=== PATIENT | female | born 1990 | race Two or more races ===

== ENCOUNTER 2021-10-23 21:47 | Emergency (ER) | payer OTHER ==
[~2021-10-23] VITALS: Ht 144.8 cm; Wt 40.8 kg
== END 2021-10-24 01:08 | disposition home or self-care (01) ==
LOC: ER 21:47
DX: R10.13 Epigastric pain (principal)

== ENCOUNTER 2021-10-26 16:41 | Emergency (ER) | payer OTHER ==
[~2021-10-26] VITALS: Ht 144.8 cm; Wt 41.7 kg
[2021-10-26] MEDS ORDERED: KETO10TA2 PO (16:55)
[2021-10-26] MEDS ORDERED: PEPCID AC20 MG PO (20:16)
[2021-10-26] MEDS ORDERED: ONDANSETRON ODT8 MG PO (20:16)
[2021-10-26] MEDS ORDERED: CARAFATE1 GM PO (20:16)
== END 2021-10-26 20:29 | disposition home or self-care (01) ==
LOC: ER 16:41
DX: O21.0 Mild hyperemesis gravidarum (principal); Z34.90 Encounter for supervision of normal pregnancy, unspecified, unspecified trimester; K29.70 Gastritis, unspecified, without bleeding; R10.84 Generalized abdominal pain

== ENCOUNTER 2022-03-02 04:07 | Emergency (ER) | payer OTHER ==
[~2022-03-02] VITALS: Ht 149.9 cm; Wt 48.5 kg
[~2022-03-02 04:07] MED LIST: CARAFATE1 GM PO; KETO10TA2 PO; ONDANSETRON ODT8 MG PO; PEPCID AC20 MG PO
[2022-03-02] MEDS ORDERED: ZOFRAN8 MG PO (08:47)
[2022-03-02] MEDS ORDERED: PEPCID40 MG PO (08:47)
== END 2022-03-02 08:56 ==
LOC: ER 04:07
DX: U07.1 COVID-19 (principal); R50.9 Fever, unspecified

== ENCOUNTER 2023-04-23 18:52 | Emergency (ER) | payer OTHER ==
[~2023-04-23] VITALS: Ht 157.5 cm; Wt 52.2 kg
[~2023-04-23 18:52] MED LIST changes: +PEPCID40 MG PO; +ZOFRAN8 MG PO
[2023-04-23] MEDS ORDERED: 0.9 % SODIUM CHLORIDE 1,000 ML IV ONE (20:45)
[2023-04-23] MEDS ORDERED: ONDANSETRON HCL 2 MG/ML VIAL IV ONE (20:45)
[2023-04-23] MEDS ORDERED: FAMOTIDINE/PF 20 MG/2 ML VIAL IV ONE (20:45)
[2023-04-23 21:20] LABS: HEMATOCRIT 41.9 % (36.0-45.00); MEAN CELL VOLUME 84.1 fL (80.00-100.00); MEAN CORPUSCULAR HEMOGLOBIN 28.1 pg (27.00-32.0); MEAN CORPUSCULAR HGB CONC 33.5 g/dl (32.0-36.0); PLATELET COUNT 210 K/uL (150-450); RED BLOOD COUNT 4.98 M/uL (4.00-6.00); RED CELL DISTRIBUTION WIDTH 14.1 % (11.5-14.5)
[2023-04-23 21:20] LABS: URINE APPEARANCE Cloudy; URINE BACTERIA 7392.1 uL (0.0-1933); URINE BILIRRUBIN Negative (NEGATIVE); URINE BLOOD Negative; URINE COLOR Yellow; URINE EPITHELIAL CELLS 47.3 uL (0.0-38.8); URINE GLUCOSE Negative (NEGATIVE); URINE LEUKOCYTE Negative; URINE NITRATE Negative; URINE PROTEIN 30 (NEGATIVE); URINE WBC 101.5 uL (0.0-23.2)
[2023-04-23 21:35] LABS: URINE MUCUS HEAVY
[2023-04-23 21:50] LABS: ALBUMIN 4.4 gm/dL (3.4-5.0); BILIRUBIN TOTAL 1.1 mg/dL (0.3-1.2); BILIRUBIN,CONJUGATED 0.23 mg/dL (0.0-0.2); BILIRUBIN,UNCONJUGATED 0.87 mg/dL (0.0-0.6); CALCIUM 8.9 mg/dL (8.5-10.1); CREATININE SERUM 0.7 mg/dL (0.55-1.02); GFR 97.6; GLOBULINA 3.4 G/DL (2.4-3.5); POTASSIUM 3.18 mEq/L (3.5-5.1); TOTAL PROTEIN 7.8 gm/dL (6.4-8.2)
[2023-04-23] MEDS ORDERED: MEPERIDINE HCL 25 MG/ML AMPUL IM STA (22:23)
[2023-04-23] MEDS ORDERED: PROMETHAZINE HCL 25 MG/ML AMPUL IM ONE (22:30)
[2023-04-23] MEDS ORDERED: ONDANSETRON ODT4 MG SL (23:58)
[2023-04-23] MEDS ORDERED: PRILOSEC OTC20 MG PO (23:58)
[2023-04-23] MEDS ORDERED: CIPRO500 MG PO (23:58)
[2023-04-23] MEDS ORDERED: INTESTINEX680 M1 PO (23:58)
== END 2023-04-24 00:19 | disposition home or self-care (01) ==
LOC: ER 18:53
PROVIDERS: Nurse Practitioner Family
DX: K52.9 Noninfective gastroenteritis and colitis, unspecified (principal); R10.9 Unspecified abdominal pain; R11.10 Vomiting, unspecified
CPT/HCPCS: 36415; 74177; 76700; Q9965

== ENCOUNTER 2024-04-09 05:29 | Inpatient (IN) | payer OTHER ==
[~2024-04-09] VITALS: Ht 144.8 cm; Wt 52.2 kg
[~2024-04-09 05:29] MED LIST changes: +BONJESTA ER 201 EACH PO; +CIPRO500 MG PO; +FOLIC PO; +INTESTINEX680 M1 PO; +ONDANSETRON ODT4 MG SL; +OSEL75CA PO; +PRILOSEC OTC20 MG PO; +TUSNEL LIQUID178 ML PO; +UNISOM SLEEP AI25 MG
--- NOTE | 2024-04-09 05:49 | NUR ---
PACIENTE FEMENINA ALERTA Y ORIENTADA X3, REFIERE DOLOR ABDOMINAL DRE Y ROSEMARIE Y DIARREAS CON YESI.
[2024-04-09] MEDS ORDERED: PROMETHAZINE HCL 50 MG/ML AMPUL IM STA (06:24)
[2024-04-09] MEDS ORDERED: MEPERIDINE HCL/PF 50 MG/ML VIAL IM STA (06:24)
[2024-04-09] MEDS ORDERED: 0.9 % SODIUM CHLORIDE 1,000 ML IV ONE (06:30)
[2024-04-09] MEDS ORDERED: PROMETHAZINE HCL 50 MG/ML AMPUL IM ONE (07:26)
--- NOTE | 2024-04-09 08:03 | NUR ---
EVALUA A PACIENTE Y SHAWN MATTHEWS EDUCA A PACIENTE SOBRE ORDENES MEDICAS. COLECTA MUESTRAS DE LAB. ENTREGA ENVASE PARA ORINA Y ESCRETA. ADMINISTRA MEDICAMENTOS KG ORDEN MEDICA Y ADMINISTRA FLUIDOS.
[2024-04-09 08:46] LABS: HEMATOCRIT 40.7 % (36.0-45.00); HEMOGLOBIN 14.3 g/dL (12.0-15.00); MEAN CELL VOLUME 84.9 fL (80.00-100.00); MEAN CORPUSCULAR HEMOGLOBIN 29.9 pg (27.00-32.0); MEAN CORPUSCULAR HGB CONC 35.2 g/dl (32.0-36.0); PLATELET COUNT 238 K/uL (150-450); RED BLOOD COUNT 4.79 M/uL (4.00-6.00); RED CELL DISTRIBUTION WIDTH 13.5 % (11.5-14.5)
[2024-04-09 08:51] LABS: URINE APPEARANCE Cloudy; URINE BILIRRUBIN Negative (NEGATIVE); URINE BLOOD Negative; URINE COLOR Dark Yellow; URINE GLUCOSE Negative (NEGATIVE); URINE KETONE 15 (NEGATIVE); URINE LEUKOCYTE Negative; URINE NITRATE Negative; URINE PROTEIN 30 (NEGATIVE)
[2024-04-09 08:54] LABS: URINE BACTERIA 4193.3 uL (0.0-1933); URINE CAST 1.76 uL (0.0-1.40); URINE EPITHELIAL CELLS 58.7 uL (0.0-38.8); URINE RBC 19.7 uL (0.0-20.8); URINE WBC 20.2 uL (0.0-23.2)
[2024-04-09 09:06] LABS: ALBUMIN 4.4 gm/dL (3.4-5.0); ALKALINE PHOSPHATASE 51 U/L (50-136); ALT/SGPT 17 U/L (12-78); AMYLASE 122 U/L (25-115); ANION GAP 12 (10.0-20.0); AST/SGOT 16 U/L (15-37); BLOOD UREA NITROGEN 9 mg/dL (7-18); BUN CREA RATIO 15 (7.0-25.0); CALCIUM 9.9 mg/dL (8.5-10.1); CARBON DIOXIDE 24 mEq/L (21-32); CHLORIDE 108 mmol/L (98-107); GFR 115.85; GLOBULINA 3.9 G/DL (2.4-3.5); GLUCOSE FASTING 116 mg/dL (65-100); LIPASE 24 U/L (13-75); OSMOLALITY SERUM 279 MOSM/KG (275-295); SODIUM 140 mmol/L (136-145); TOTAL PROTEIN 8.3 gm/dL (6.4-8.2)
[2024-04-09 09:10] LABS: INR 1.06; PROTHROMBIN TIME 11.5 SECONDS (9.0-11.5)
[2024-04-09 09:14] LABS: HCG QUANTITATIVE < 1 mUI/mL (1-3)
[2024-04-09 09:17] LABS: ob POSITIVE (NEGATIVE)
[2024-04-09 09:18] LABS: FECAL LEUKOCYTES POSITIVE (NEGATIVE)
[2024-04-09] MEDS ORDERED: DIATRIZOATE MEGLUMINE, SODIUM 30 ML BOTTLE ONE (09:37)
[2024-04-09 09:46] LABS: URINE CRYSTALS FEW /HPF; URINE MUCUS HEAVY
[2024-04-09] MEDS ORDERED: METRONIDAZOLE/SODIUM CHLORIDE 500 MG/100 ML PIGGYBACK IV ONE ×2 (14:30→14:44)
[2024-04-09] MEDS ORDERED: CIPROFLOXACIN IN 5 % DEXTROSE 400 MG/200 ML PIGGYBAG IV ONE ×2 (14:30→14:44)
[2024-04-09] MEDS ORDERED: MEPERIDINE HCL/PF 50 MG/ML VIAL IM ONE (16:45)
[2024-04-09] MEDS ORDERED: FAMOTIDINE/PF 20 MG in 0.9 % SODIUM CHLORIDE 8 ML IV PUSH SCH (18:10)
[2024-04-09] MEDS ORDERED: HYOSCYAMINE SULFATE 0.125 MG TAB.SUBL SL ONE (18:15)
[2024-04-09] MEDS ORDERED: ONDANSETRON HCL 4 MG in 0.9 % SODIUM CHLORIDE 50 ML IV PRN (18:15)
[2024-04-09] MEDS ORDERED: ACETAMINOPHEN 500 MG GEL..CAP PO PRN (18:15)
[2024-04-09] MEDS ORDERED: MORPHINE SULFATE 2 MG/ML CARTRIDGE IV PRN (18:15)
[2024-04-09] MEDS ORDERED: 0.9 % SODIUM CHLORIDE 1,000 ML IV SCH (18:15)
[2024-04-09] MEDS ORDERED: HYOSCYAMINE SULFATE 0.125 MG TAB.SUBL ONE (19:33)
[2024-04-09] MEDS ORDERED: FAMOTIDINE/PF 20 MG/2 ML VIAL ONE (19:34)
[2024-04-09] MEDS ORDERED: CIPROFLOXACIN IN 5 % DEXTROSE 200 ML IV SCH (21:00)
[2024-04-09 21:45] VITALS: BP 87/57
[2024-04-10 00:27] VITALS: BP 154/83
[2024-04-10] MEDS ORDERED: METRONIDAZOLE/SODIUM CHLORIDE 100 ML IV SCH (01:00)
[2024-04-10 09:12] VITALS: BP 106/61; O2SAT 100
[2024-04-10 16:40] LABS: ALBUMIN 3.7 gm/dL (3.4-5.0); BILIRUBIN TOTAL 1.63 mg/dL (0.3-1.2); CALCIUM 8.5 mg/dL (8.5-10.1); CREATININE SERUM 0.54 mg/dL (0.55-1.02); GFR 130.83; GLOBULINA 2.9 G/DL (2.4-3.5); POTASSIUM 3.51 mEq/L (3.5-5.1); TOTAL PROTEIN 6.6 gm/dL (6.4-8.2)
[2024-04-10 16:51] VITALS: BP 96/54; O2SAT 100
[2024-04-10] MEDS ORDERED: CEFTRIAXONE SODIUM 2,000 MG VIAL IV SCH (17:00)
[2024-04-10] MEDS ORDERED: PIPERACILLIN/TAZOBACTAM SODIUM 3.375 GM VIAL IV SCH (18:00)
[2024-04-10] MEDS ORDERED: FAMOTIDINE/PF 20 MG in 0.9 % SODIUM CHLORIDE 8 ML IV PUSH SCH (21:00)
[2024-04-11 02:06] VITALS: BP 94/45
[2024-04-11 07:57] LABS: HEMATOCRIT 34.7 % (36.0-45.00); HEMOGLOBIN 11.7 g/dL (12.0-15.00); MEAN CELL VOLUME 87.5 fL (80.00-100.00); MEAN CORPUSCULAR HEMOGLOBIN 29.4 pg (27.00-32.0); MEAN CORPUSCULAR HGB CONC 33.6 g/dl (32.0-36.0); PLATELET COUNT 164 K/uL (150-450); RED BLOOD COUNT 3.96 M/uL (4.00-6.00); RED CELL DISTRIBUTION WIDTH 13.7 % (11.5-14.5)
[2024-04-11 08:10] VITALS: BP 95/48
[2024-04-11] MEDS ORDERED: FAMOTIDINE/PF 20 MG/2 ML VIAL ONE (08:26)
[2024-04-11 17:29] VITALS: BP 112/59; O2SAT 98
[2024-04-12 02:00] VITALS: BP 98/57
[2024-04-12] MEDS ORDERED: FAMOTIDINE/PF 20 MG/2 ML VIAL ONE (07:39)
[2024-04-12 07:54] VITALS: BP 87/48
[2024-04-12 14:08] VITALS: BP 104/54
[2024-04-12 16:43] VITALS: BP 102/58; O2SAT 99
[2024-04-13 02:07] VITALS: BP 91/49
[2024-04-13 06:40] LABS: HEMATOCRIT 35.6 % (36.0-45.00); HEMOGLOBIN 12.1 g/dL (12.0-15.00); MEAN CELL VOLUME 87.1 fL (80.00-100.00); MEAN CORPUSCULAR HEMOGLOBIN 29.6 pg (27.00-32.0); MEAN CORPUSCULAR HGB CONC 33.9 g/dl (32.0-36.0); PLATELET COUNT 181 K/uL (150-450); RED BLOOD COUNT 4.08 M/uL (4.00-6.00); RED CELL DISTRIBUTION WIDTH 12.7 % (11.5-14.5)
[2024-04-13 07:10] LABS: CALCIUM 8.1 mg/dL (8.5-10.1); CREATININE SERUM 0.46 mg/dL (0.55-1.02); GFR 157.42; POTASSIUM 3.42 mEq/L (3.5-5.1)
[2024-04-13 08:47] VITALS: BP 107/62
== END 2024-04-13 13:18 | disposition home or self-care (01) | DRG 392 ==
LOC: ER 05:29 → MEDI 19:57
PROVIDERS: General Practice; ADMIT Internal Medicine; ATTEND Internal Medicine
PROC: BW21ZZZ Computerized Tomography (CT Scan) of Abdomen and Pelvis (ICD-10-PCS; principal; 2024-04-09)
DX: K52.89 Other specified noninfective gastroenteritis and colitis (principal); K92.1 Melena; R65.10 Systemic inflammatory response syndrome (SIRS) of non-infectious origin without acute organ dysfunction